=== PATIENT | male | born 2000 | race Native Hawaiian/Other Pacific Islander ===

== ENCOUNTER 2023-07-26 19:00 | Outpatient (CLI) | payer OTHER, SELFPAY ==
[2023-07-26 23:31] LABS: GC DNA Amplified* NOT DETECTED (No Detected)
[2023-07-26 23:37] LABS: Chlamydia DNA Amplified* DETECTED (No Detected)
== END 2023-07-26 19:01 | disposition home or self-care (01) ==
LOC: NFLDUCREF 19:00
PROVIDERS: Visit Provider Physician Assistant
DX: R30.0 Dysuria (principal)
CPT/HCPCS: 87491; 87591